=== PATIENT | male | born 1990 | race Caucasian/White ===

== ENCOUNTER → 2016-06-12 12:23 | Emergency (ER) | payer OTHER ==
--- NOTE | 2016-06-12 18:24 | ED ---
HPI Chest Pain - HPI Summary HPI Summary: 25M presents with left sided chest pain for a week. [facility] with left side chest wall pain that occasionally radiates to back. chest xray at [facility] normal. Pain is reproducible on exam. He states that deep breathing makes pain worst. He denies any cough, fever, or palpitations. He states he feels that it is related to anxiety. He states when he goes to work his chest pain is worst. He denies any chest pain currently. He denies any abdominal pain or nausea. He does have a family history of chest pain but no one below the age of 50. His dad did have a CAPG at age of 55. He is non asmoker. He denies any pain or swelling in his calf muscles. He denies any recent travel or family history of blood clots. He denies any personal history of HTN or DM. - History of Current Complaint Chief Complaint: EDChestPainROMI Time Seen by Provider: 06/12/16 17:37 Pain Intensity: 8 - Allergy/Home Medications Allergies/Adverse Reactions: Allergies Allergy/AdvReac Type Severity Reaction Status Date / Time No Known Allergies Allergy Verified 06/12/16 12:26 PMH/Surg Hx/FS Hx/Imm Hx Endocrine/Hematology History: Denies: Hx Diabetes Cardiovascular History: Denies: Hx Hypertension Infectious Disease History: Denies: Traveled Outside the [place] in Last 30 Days - Family History Known Family History: Positive: Cardiac Disease - Social History Alcohol Use: Occasionally Substance Use Type: Reports: None Smoking Status (MU): Never Smoked Tobacco Review of Systems Negative: Fever Positive: Chest Pain Positive: Shortness Of Breath. Negative: Cough Negative: Abdominal Pain All Other Systems Reviewed And Are Negative: Yes Physical Exam Triage Information Reviewed: Yes Vital Signs On Initial Exam: Initial Vitals Temp Pulse Resp BP Pulse Ox 98.0 F 75 17 149/90 95 06/12/16 12:24 06/12/16 12:24 06/12/16 12:24 06/12/16 12:24 06/12/16 12:24 Vital Signs Reviewed: Yes Appearance: Positive: Well-Appearing Skin: Positive: Warm, Dry Head/Face: Positive: Normal Head/Face Inspection Eyes: Positive: Normal, Conjunctiva Clear ENT: Positive: Normal ENT inspection, Pharynx normal, TMs normal Respiratory/Lung Sounds: Positive: Clear to Auscultation, Breath Sounds Present , Other - reproducible chest pain on exam Cardiovascular: Positive: Normal, RRR Abdomen Description: Positive: Nontender, Soft Bowel Sounds: Positive: Present Diagnostics - Vital Signs Vital Signs Temp Pulse Resp BP Pulse Ox 06/12/16 17:28 98.7 F 60 17 145/77 100 06/12/16 15:10 97.9 F 65 16 138/83 99 06/12/16 13:46 98.3 F 85 18 144/94 99 06/12/16 12:24 98.0 F 75 17 149/90 95 - Laboratory Result Diagrams: 06/12/16 18:58 06/12/16 18:58 Lab Statement: Any lab studies that have been ordered have been reviewed, and results considered in the medical decision making process. - EKG No standard instances Cardiac Rate: NL EKG Rhythm: Sinus Rhythm ST Segment: Normal Chest Pain Course/Dx - Course Course Of Treatment: 25M presents with chest pain for a week. states excerise no efffect on chest pain. had normal chest xray today at [facility]. story not consisent with ACS so only did one troponin (normal) has chest pain had resolved at this time. states breathing makes it worst but neg homans and d- dimer <200. states has been feeling more anxious. chest pain likely costochroniditis vs anxiety. told may need to see counselor. patient understands and agrees with plan - Chest Pain Differential Diagnosis/HQI/PQRI: ACS, Chest Wall, Pulmonary Embolism, Other: - anxiety - Diagnoses Provider Diagnoses: Chest pain Discharge - Discharge Plan Condition: Good Disposition: HOME Patient Education Materials: Noncardiac Chest Pain (ED) Referrals: Non Staff,Doctor [Primary Care Provider] - Additional Instructions: Take ibuprofen for pain every 6 hours Practice deep breath and relaxation techniques throughout the day Follow up with primary within 5 days Return to ED if develop any new or worsening symptoms
[2016-06-12 19:14] LABS: Hematocrit 44 % (42-52); Hemoglobin 14.6 g/dl (14.0-18.0); Mean Corpuscular HGB Conc 33 g/dl (31-36); Mean Corpuscular Hemoglobin 29 pg (27-31); Mean Corpuscular Volume 87 fL (80-94); Mean Platelet Volume 8 um3 (7.4-10.4); Red Blood Count 5.02 10^6/ul (4.0-5.4); Red Cell Distribution Width 14 % (10.5-15); White Blood Count 9.3 10^3/ul (3.5-10.8)
[2016-06-12 19:25] LABS: Albumin 4.6 g/dL (3.2-5.2); BUN/Creatinine Ratio 8.7 (8-20); Calcium 9.7 mg/dL (8.6-10.3); EGFR African American 112.8 (>60); EGFR Non-African American 87.7 (>60); Globulin 3.3 g/dL (2-4); Total Bilirubin 0.5 mg/dL (0.2-1.0); Total Protein 7.9 g/dL (6.4-8.9)
[2016-06-12 20:11] LABS: TSH (Thyroid Stimulating Horm) 2.06 mcIU/mL (0.34-5.60)
[2016-06-12 20:27] VITALS: BP 122/76
== END | disposition home or self-care (01) ==
LOC: ED 12:23
DX: R07.9 Chest pain, unspecified (principal); R06.02 Shortness of breath
CPT/HCPCS: 36415; 80053; 84443; 84484; 85025; 85379; 93005; 99282